=== PATIENT | female | born 1995 | race African-American/Black ===

== ENCOUNTER 2020-08-15 10:44 | Emergency (ER) | payer MEDICAID ==
[~2020-08-15] VITALS: Ht 177.8 cm; Wt 90.0 kg
[2020-08-15 10:45] VITALS: BP 107/61
[2020-08-15] MEDS ORDERED: ALBUTEROL (0.5%) 2.5MG/0.5ML NEB HHN ONE (11:15)
== END 2020-08-15 12:43 | disposition home or self-care (01) ==
LOC: ER 10:44
DX: J45.901 Unspecified asthma with (acute) exacerbation (principal); Z76.0 Encounter for issue of repeat prescription; F17.210 Nicotine dependence, cigarettes, uncomplicated
CPT/HCPCS: 94640; 99283; Z7610